=== PATIENT | male | born 1990 | race Caucasian/White ===

== ENCOUNTER → 2023-09-02 | Outpatient (CLI) | payer BC ==
--- NOTE | 2023-09-02 11:15 | Diagnostic Imaging Report ---
CLINICAL INDICATION: Patient running yesterday and fell landing on elbow now having upper left abdominal pain. EXAM: Axial CT scan the abdomen performed without IV contrast. Sagittal and coronal reformatted images are created. Auto Exposure Controls were utilized during the CT exam to meet ALARA standards for radiation dose reduction. COMPARISON: None. FINDINGS: Visualized lung bases are clear. There are degenerative spurs involving the visualized portions of the thoracic spine and lumbar spine. There is no fracture seen. The liver, spleen, pancreas, gallbladder, and adrenal glands unremarkable. There are 2 nonobstructive stones involving left kidney. Largest one measures 4 mm involving the upper pole left kidney. There is a punctate one involving the inferior pole the left kidney. There is no hydronephrosis or mass. There are multiple small periaortic lymph nodes which are not enlarged. The intestines are unremarkable. There is no intra-abdominal free air or free fluid. There is a fat-containing umbilical hernia with the mouth measuring 1.3 cm in transverse dimensions and 8 mm in craniocaudal dimensions. There is mild fat stranding seen in the region. IMPRESSION: 1: There is no CT evidence of acute abdominal process. 2: There is a small fat-containing umbilical hernia with minimal fat stranding associated with it. 3: There is nonobstructive left nephrolithiasis. 4: There is no acute fracture.. Dictated by: Dictated on workstation # [id number]
--- NOTE | 2023-09-02 12:49 | Diagnostic Imaging Report ---
EXAMINATION: Left ribs unilateral 2 view HISTORY: Rib injury COMPARISON: None available. FINDINGS: No left-sided rib fracture is seen. No pneumothorax. Left lung is clear. IMPRESSION: 1. No left-sided rib fracture is seen. Dictated by: Dictated on workstation # [id number]
== END ==
LOC: RAD 10:32
PROVIDERS: ATTEND Family Medicine
DX: N20.0 Calculus of kidney (principal); K42.9 Umbilical hernia without obstruction or gangrene; R07.9 Chest pain, unspecified; W19.XXXS Unspecified fall, sequela
CPT/HCPCS: 71100; 74150